=== PATIENT | male | born 1995 | race Caucasian/White ===

== ENCOUNTER 2017-09-10 03:09 | Emergency (ER) | payer OTHER ==
[~2017-09-10] VITALS: Ht 185.4 cm; Wt 113.7 kg
[2017-09-10 03:12] VITALS: BP 142/88
== END 2017-09-10 04:30 | disposition home or self-care (01) ==
LOC: ED 04:05
DX: J06.9 Acute upper respiratory infection, unspecified (principal)
CPT/HCPCS: 99283

== ENCOUNTER 2018-02-20 20:28 | Emergency (ER) | payer OTHER ==
[~2018-02-20] VITALS: Ht 185.4 cm; Wt 113.6 kg
[2018-02-20 20:31] VITALS: BP 147/87
== END 2018-02-20 21:29 ==
LOC: MERGE 21:23 → ED 21:23
DX: S60.012A Contusion of left thumb without damage to nail, initial encounter (principal); W20.8XXA Other cause of strike by thrown, projected or falling object, initial encounter; Y93.89 Activity, other specified; Y92.89 Other specified places as the place of occurrence of the external cause; Y99.0 Civilian activity done for income or pay
CPT/HCPCS: 29125; 99284

== ENCOUNTER 2019-09-07 20:34 | Emergency (ER) | payer OTHER ==
[~2019-09-07] VITALS: Ht 185.4 cm; Wt 118.9 kg
--- NOTE | 2019-09-07 20:44 | NUR ---
PT AMB TO ROOM FROM TRIAGE WITH STEADY GAIT NO NEURO DEFICITS NOTED.
--- NOTE | 2019-09-07 20:56 | NUR ---
THIS IS A 23 YO M W/ C/O HEAD LAC. PT DENIES LOC/VISUAL CHANGES/PURDY/N/V. RESP EVEN AND UNLABORED. NADN. PT RESTING ON GURNEY W/ CALL LIGHT IN REACH AWAITING ED EVAL.
[2019-09-07] MEDS ORDERED: NEOSPORIN OINT. PKT 1 PACKET ONE (22:00)
--- NOTE | 2019-09-07 22:04 | NUR ---
ADAN CLEANED HEAD LAC
[2019-09-07 22:22] VITALS: BP 155/84
== END 2019-09-07 22:23 | disposition home or self-care (01) ==
LOC: MERGE 20:57 → ED 20:57
DX: S01.81XA Laceration without foreign body of other part of head, initial encounter (principal); X58.XXXA Exposure to other specified factors, initial encounter; Y93.89 Activity, other specified; Y92.410 Unspecified street and highway as the place of occurrence of the external cause; Y99.8 Other external cause status
CPT/HCPCS: 12052; 99284

== ENCOUNTER 2019-12-31 14:26 | Emergency (ER) | payer OTHER ==
[~2019-12-31] VITALS: Ht 185.4 cm; Wt 110.0 kg
[2019-12-31 14:28] VITALS: BP 147/96
--- NOTE | 2019-12-31 14:43 | NUR ---
PT AMBULATORY TO ROOM 18 W/ C/O R SIDE INCHED NERVE W/ MILD INCREASED WEAKNESS. PT STATES HE WAS DEADLIFTING WEIGHTS YESTERDAY W/O ISSUE AND TODAY BENT OVER TO CHANGE SON'S DIAPER AND FELT THE PAIN START AND SHOOT DOWN HIS LEG. DENIES INCONTINENCE. PT RESTING ON SAUMYA. MARIO. MADISON IYER AT BEDSIDE.
[2019-12-31] MEDS ORDERED: IBUPROFEN 800 MG TABLET ONE (14:47)
[2019-12-31] MEDS ORDERED: IBUPROFEN 800 MG TABLET PO ONE (15:00)
--- NOTE | 2019-12-31 15:34 | NUR ---
PT CURRENTLY IN MRI AT THIS TIME.
--- NOTE | 2019-12-31 15:52 | NUR ---
PT CHART REVIEWED AND PLACED FOR RECHECK.
== END 2019-12-31 16:52 | disposition home or self-care (01) ==
LOC: ED 16:10
DX: M51.16 Intervertebral disc disorders with radiculopathy, lumbar region (principal); M54.5 Low back pain; R20.0 Anesthesia of skin
CPT/HCPCS: 72148; 99284